=== PATIENT | female | born 1965 | race Caucasian/White ===

== ENCOUNTER → 2019-05-26 | Day surgery (SDC) | payer OTHER ==
[~2019-05-26] MED LIST: ALBUTEROL0.63 MG/3 INH; LEVOTHYROXINE50 MCG PO; LIDOCAINE HCL 2% LOCAL INJ 5 ML SDV VIAL INJ ONE; LOSARTAN POTASS25 MG PO; METFORMIN HCL500 MG PO; MIDAZOLAM HCL 2 MG/2 ML VIAL ONE; PROPOFOL IV EMULSION 10 MG/ML 20 ML VIAL ONE; SERTRALINE HCL100 MG PO; VITAMIN B122500 MCG PO; VITAMIN D3400 UNI1 PO; VITAMIN D34000 UNIT PO
[2019-05-26 14:05] VITALS: BP 120/71
--- NOTE | 2019-05-26 20:31 | Operative Report ---
DATE OF PROCEDURE: 05/26/2019 SURGEON: Lobo Lobo MD PROCEDURE PERFORMED: Colonoscopy. PREOPERATIVE DIAGNOSIS: History of colon polyps. POSTOPERATIVE DIAGNOSIS: History of colon polyps. No new colon polyps found. PREOPERATIVE MEDICATIONS: Consisted of general anesthesia. DESCRIPTION OF PROCEDURE: Using an [employer] video colonoscope, it was inserted into the patient's rectum and advanced without difficulty to the level of the cecum. The colon was studied from that level back down to the rectum. No colon polyps were found. The colonoscope was withdrawn from the patient's rectum, and the procedure was ended. Lobo Lobo MD SAF/MODL /[id number]
== END | disposition home or self-care (01) ==
LOC: OR 10:30
PROVIDERS: ATTEND Internal Medicine Gastroenterology
DX: Z09 Encounter for follow-up examination after completed treatment for conditions other than malignant neoplasm (principal); Z86.010 Personal history of colon polyps; G47.33 Obstructive sleep apnea (adult) (pediatric); J45.909 Unspecified asthma, uncomplicated; E03.9 Hypothyroidism, unspecified; I10 Essential (primary) hypertension; E11.9 Type 2 diabetes mellitus without complications; R00.1 Bradycardia, unspecified; Z01.810 Encounter for preprocedural cardiovascular examination; Z79.84 Long term (current) use of oral hypoglycemic drugs; Z68.43 Body mass index [BMI] 50.0-59.9, adult
CPT/HCPCS: 36415; 45378; 82948; 93005; J2001; J2250; J2704

== ENCOUNTER 2021-04-11 16:01 | Emergency (ER) | payer OTHER ==
[~2021-04-11] VITALS: Ht 162.6 cm; Wt 141.5 kg
[~2021-04-11 16:01] MED LIST changes: -LIDOCAINE HCL 2% LOCAL INJ 5 ML SDV VIAL INJ ONE; -MIDAZOLAM HCL 2 MG/2 ML VIAL ONE; -PROPOFOL IV EMULSION 10 MG/ML 20 ML VIAL ONE
[2021-04-11 19:14] VITALS: BP 134/79
== END 2021-04-11 19:15 | disposition home or self-care (01) ==
LOC: ER 16:08
DX: S16.1XXA Strain of muscle, fascia and tendon at neck level, initial encounter (principal); M54.6 Pain in thoracic spine; V43.54XA Car driver injured in collision with van in traffic accident, initial encounter; Y92.488 Other paved roadways as the place of occurrence of the external cause; I10 Essential (primary) hypertension; E11.9 Type 2 diabetes mellitus without complications; E78.5 Hyperlipidemia, unspecified
CPT/HCPCS: 72050; 72070; 99284